=== PATIENT | male | born 1955 | race Two or more races ===

== ENCOUNTER 2017-10-19 12:30 | Emergency (ER) | payer SELFPAY ==
[~2017-10-19] VITALS: Ht 182.9 cm; Wt 74.8 kg
[2017-10-19 13:27] LABS: Basophils # (auto) 0 uL; Basophils % (auto) 0.3 % (0.0-2.0); Eosinophils # (auto) 0 uL; Eosinophils % (auto) 0.2 % (0.0-7.0); Hematocrit 42.6 % (41.0-53.0); Hemoglobin 14.6 g/dL (13.5-17.5); Lymphocytes # (auto) 0.2 uL; Lymphocytes % (auto) 2.9 % (10.0-50.0); Mean Corpuscular Hemoglobin 33.8 pg (28.0-32.0); Mean Corpuscular Hgb Conc. 34.2 g/dL (32.0-36.0); Monocytes # (auto) 0.7 uL; Monocytes % (auto) 11.8 % (0.0-12.0); Neutrophils # (auto) 5.4 uL; Neutrophils % (auto) 84.8 % (37.0-80.0); Nucleated Red Blood Cells % 0.1 %; Platelet Count (auto) 207 10^3/uL (140-450); Red Blood Cells 4.31 10^6/uL (4.5-5.90); Red Cell Distribution Width 16.6 % (11.8-14.3); White Blood Cell 6.3 10^3/uL (4.4-10.8)
[2017-10-19 13:34] LABS: Urine Bacteria NONE SEEN /hpf (None Seen); Urine Blood Negative /uL (Negative); Urine Mucus FEW (None Seen); Urine Specific Gravity 1.035 (1.001-1.035); Urine WBC 2 /hpf (0 - 3)
[2017-10-19 13:45] LABS: Alanine Aminotransferase 24 U/L (16-61); Anion Gap 12 (5-15); Aspartate Aminotransferase 26 U/L (15-37); Blood Urea Nitrogen 18 mg/dL (7-18); Calcium 8.4 mg/dL (8.5-10.1); Carbon Dioxide 22 mmol/L (21-32); Chloride 108 mmol/L (98-107); GFR African American 110 mL/min; GFR Non-African American 91 mL/min; Glucose 104 mg/dL (74-106); Potassium 3.8 mmol/L (3.5-5.1); Sodium 142 mmol/L (136-145)
[2017-10-19 13:50] LABS: Total Protein 7.4 g/dL (6.4-8.2)
[2017-10-19] MEDS ORDERED: LEVOFLOXACIN 250 MG TAB PO ONE (14:00)
[2017-10-19 14:01] LABS: Alkaline Phosphatase 91 U/L (45-117); Bilirubin, Total 0.5 mg/dL (0.2-1.0)
[2017-10-19 15:57] VITALS: BP 154/73
== END 2017-10-19 16:05 | disposition home or self-care (01) ==
LOC: ER 12:42
DX: J40 Bronchitis, not specified as acute or chronic (principal)
CPT/HCPCS: 36415; 71046; 80053; 81001; 84484; 85025; 93005

== ENCOUNTER 2018-01-04 23:14 | Emergency (ER) | payer MEDICAID, OTHER ==
[~2018-01-04] VITALS: Ht 177.8 cm; Wt 81.6 kg
[2018-01-04] MEDS ORDERED: cefTRIAXone W LIDOCAINE 1 GM IM IM ONE (23:45)
[2018-01-05] MEDS ORDERED: cefTRIAXone SOD 1,000 MG VL ONE (00:07)
[2018-01-05 01:02] LABS: Eosinophils # (auto) 0 uL; Eosinophils % (auto) 0.3 % (0.0-7.0); Mean Corpuscular Hgb Conc. 33.9 g/dL (32.0-36.0); Monocytes # (auto) 0.4 uL
[2018-01-05 01:04] LABS: Basophils # (auto) 0 uL; Basophils % (auto) 0.3 % (0.0-2.0); Hemoglobin 13.5 g/dL (13.5-17.5); Lymphocytes % (auto) 13.5 % (10.0-50.0); Mean Corpuscular Hemoglobin 34.3 pg (28.0-32.0); Mean Corpuscular Volume 101.4 fL (80.0-100.0); Monocytes % (auto) 4.8 % (0.0-12.0); Neutrophils # (auto) 6.1 uL; Neutrophils % (auto) 81.1 % (37.0-80.0); Nucleated Red Blood Cells % 0.1 %; Platelet Count (auto) 213 10^3/uL (140-450); Red Blood Cells 3.94 10^6/uL (4.5-5.90); Red Cell Distribution Width 14.9 % (11.8-14.3); White Blood Cell 7.5 10^3/uL (4.4-10.8)
[2018-01-05 01:15] LABS: Albumin 3.4 g/dL (3.4-5.0); Potassium 3.6 mmol/L (3.5-5.1)
[2018-01-05 01:17] LABS: Acetaminophen < 2.0 ug/mL (10-30); Salicylate 2.6 mg/dL (2.8-20.0)
[2018-01-05 01:32] LABS: Bilirubin, Total 0.2 mg/dL (0.2-1.0); Total Protein 6.8 g/dL (6.4-8.2)
[2018-01-05 02:26] LABS: Urine Bacteria NONE SEEN /hpf (None Seen); Urine Blood Negative /uL (Negative); Urine Specific Gravity 1.003 (1.001-1.035); Urine WBC <1 /hpf (0 - 3)
[2018-01-05 02:33] LABS: Amphetamine Screen, Urine NEGATIVE (NEGATIVE); Barbiturate Scree,Urine NEGATIVE (NEGATIVE); Benzodiazephine Screen, Urine NEGATIVE (NEGATIVE); Cannabinoid Screen, Urine POSITIVE (NEGATIVE); Cocaine Screen, Urine NEGATIVE (NEGATIVE); Opiate Scree,Urine NEGATIVE (NEGATIVE); Phencyclidine Screen, Urine NEGATIVE (NEGATIVE)
[2018-01-05 03:13] VITALS: BP 152/81
== END 2018-01-05 04:53 | disposition home or self-care (01) ==
LOC: ER 23:14 → EDBD 23:14 → ER 01-05 04:53
DX: S00.10XA Contusion of unspecified eyelid and periocular area, initial encounter (principal); F10.129 Alcohol abuse with intoxication, unspecified; G44.319 Acute post-traumatic headache, not intractable; J44.9 Chronic obstructive pulmonary disease, unspecified; F12.10 Cannabis abuse, uncomplicated; Z86.711 Personal history of pulmonary embolism; Y04.2XXA Assault by strike against or bumped into by another person, initial encounter; Y93.89 Activity, other specified; Y92.89 Other specified places as the place of occurrence of the external cause; Y99.8 Other external cause status
CPT/HCPCS: 36415; 70450; 70486; 72125; 80053; 80307; 80320; 80329; 81001; 85025; 96372; 99285; J0696

== ENCOUNTER 2018-06-15 17:48 | Inpatient (IN) | payer MEDICAID ==
[~2018-06-15] VITALS: Ht 172.7 cm; Wt 100.2 kg
[~2018-06-15 17:48] MED LIST: ALBUAER3 IN; LEVO500T21 PO; RIV15T PO
[2018-06-15] MEDS ORDERED: methylPREDNISolone SOD SUCC 125 MG/2 ML VL IV ONE (18:15)
[2018-06-15] MEDS ORDERED: ALBUTEROL SULF 2.5 MG/0.5ML(0.5%) NEB SOLN HHN ONE (18:15)
[2018-06-15 18:39] LABS: Basophils # (auto) 0 uL; Eosinophils # (auto) 0 uL; Lymphocytes # (auto) 0.7 uL; Mean Corpuscular Hemoglobin 36.8 pg (28.0-32.0); Monocytes # (auto) 0.4 uL; Nucleated Red Blood Cells % 0.3 %; White Blood Cell 3.4 10^3/uL (4.4-10.8)
[2018-06-15 18:41] LABS: Basophils % (auto) 1.3 % (0.0-2.0); Eosinophils % (auto) 1.2 % (0.0-7.0); Hematocrit 40.4 % (41.0-53.0); Lymphocytes % (auto) 20.4 % (10.0-50.0); Mean Corpuscular Hgb Conc. 34.7 g/dL (32.0-36.0); Mean Corpuscular Volume 106.2 fL (80.0-100.0); Monocytes % (auto) 10.9 % (0.0-12.0); Neutrophils # (auto) 2.3 uL; Neutrophils % (auto) 66.2 % (37.0-80.0); Platelet Count (auto) 132 10^3/uL (140-450); Red Cell Distribution Width 15.9 % (11.8-14.3)
[2018-06-15 18:57] LABS: Alanine Aminotransferase 59 U/L (16-61); Albumin 3.4 g/dL (3.4-5.0); Anion Gap 18 (5-15); Aspartate Aminotransferase 90 U/L (15-37); BUN/Creatinine Ratio 17.4; Blood Urea Nitrogen 16 mg/dL (7-18); Calcium 7.8 mg/dL (8.5-10.1); Carbon Dioxide 16 mmol/L (21-32); Chloride 111 mmol/L (98-107); GFR African American 107 mL/min; GFR Non-African American 89 mL/min; Glucose 110 mg/dL (74-106); Lactic Acid w/Reflex 7.1 mmol/L (0.4-2.0); Magnesium 1.6 mg/dL (1.6-2.6); Potassium 3.3 mmol/L (3.5-5.1); Sodium 145 mmol/L (136-145)
[2018-06-15 19:02] LABS: Alkaline Phosphatase 98 U/L (45-117); Bilirubin, Total 0.9 mg/dL (0.2-1.0); Total Protein 6.5 g/dL (6.4-8.2)
[2018-06-15] MEDS ORDERED: POTASSIUM CHL 20MEQ/100ML 100 ML IV ONE (21:00)
[2018-06-15] MEDS ORDERED: ONDANSETRON HCL 4 MG/2 ML VIAL IV ONE (21:00)
[2018-06-15] MEDS ORDERED: LEVOFLOXACIN 500MG 100 ML IV ONE (21:00)
[2018-06-15] MEDS ORDERED: ONDANSETRON HCL 4 MG/2 ML VIAL IV PRN (21:15)
[2018-06-15] MEDS ORDERED: ACETAMINOPHEN 500 MG TAB PO PRN (21:15)
[2018-06-15] MEDS ORDERED: HYDROcodone-ACET 5/325MG TAB PO PRN (21:15)
[2018-06-15] MEDS ORDERED: IOHEXOL 350 MG/ML 100ML IJ ONE (22:23)
[2018-06-15] MEDS ORDERED: chlordiazePOXIDE HCL 25 MG CAP PO PRN (22:30)
[2018-06-15] MEDS ORDERED: LORazepam 2MG/ML-1ML VIAL IV ONE (22:30)
[2018-06-15] MEDS: METOPROLOL TARTRATE 25 MG TAB PO SCH (22:33)
[2018-06-15] MEDS ORDERED: LORazepam 2MG/ML-1ML VIAL IV PRN (22:45)
[2018-06-15] MEDS ORDERED: ETOMIDATE (2MG/ML) 20ML VIAL IV ONE (23:44)
[2018-06-15] MEDS ORDERED: SUCCINYLCHOLINE CHLORIDE 20 MG/ML 10ML VIAL IV ONE (23:45)
[2018-06-15] MEDS ORDERED: PROPOFOL 100 ML IV ONE (23:45)
[2018-06-15] MEDS: MIDAZOLAM DRIP 50 mg/50mL 50 ML IV SCH (23:56)
[2018-06-16] VITALS (100 sets, daily range): BP systolic 74–169; BP diastolic 46–110
[2018-06-16] MEDS ORDERED: NOREPINEPHRINE 8 MG/250ML KIT 250 ML IV ONE (00:09)
[2018-06-16] MEDS ORDERED: EPINEPHrine HCL 1 MG/10 ML SYRG ONE ×2 (00:26→00:59)
[2018-06-16] MEDS ORDERED: SODIUM BICARBONATE 8.4% INJ 50ML SYRINGE ONE ×3 (00:29→03:11)
[2018-06-16] MEDS: NOREPINEPHRINE 8 MG/250ML KIT 250 ML IV SCH (00:40)
[2018-06-16] MEDS ORDERED: EPINEPHrine HCL 250 ML IV ONE (00:52)
[2018-06-16 00:54] LABS: Mean Corpuscular Hgb Conc. 31.6 g/dL (32.0-36.0)
[2018-06-16 00:55] LABS: Basophils # (auto) 0 uL; Basophils % (auto) 0.3 % (0.0-2.0); Eosinophils # (auto) 0 uL; Eosinophils % (auto) 0.2 % (0.0-7.0); Lymphocytes # (auto) 1.2 uL; Lymphocytes % (auto) 22.7 % (10.0-50.0); Mean Corpuscular Hemoglobin 36.2 pg (28.0-32.0); Mean Corpuscular Volume 114.4 fL (80.0-100.0); Monocytes # (auto) 0.2 uL; Monocytes % (auto) 3.7 % (0.0-12.0); Neutrophils # (auto) 3.9 uL; Neutrophils % (auto) 73.1 % (37.0-80.0); Nucleated Red Blood Cells % 0.4 %; Platelet Count (auto) 104 10^3/uL (140-450); Red Blood Cells 3.59 10^6/uL (4.5-5.90); Red Cell Distribution Width 17.6 % (11.8-14.3); White Blood Cell 5.3 10^3/uL (4.4-10.8)
[2018-06-16] MEDS ORDERED: ATROPINE SULF 1 MG/10ml SYR ONE (00:58)
[2018-06-16] MEDS ORDERED: EPINEPHrine HCL INJECTION 4 MG in SODIUM CHL 0.9% 250 ML IV ONE (01:00)
[2018-06-16 01:02] LABS: INR 1.07 (0.9-1.15); Partial Thromboplastin Time 29.7 sec (23.78-33.04); Prothrombin Time 11.4 sec (9.27-12.13)
[2018-06-16] MEDS ORDERED: methylPREDNISolone SOD SUCC 125 MG/2 ML VL ONE (01:05)
[2018-06-16 01:07] LABS: Albumin 2.8 g/dL (3.4-5.0); BUN/Creatinine Ratio 11.9; Potassium 4.4 mmol/L (3.5-5.1)
[2018-06-16 01:12] LABS: Bilirubin, Total 0.5 mg/dL (0.2-1.0); Total Protein 5.6 g/dL (6.4-8.2)
[2018-06-16] MEDS ORDERED: methylPREDNISolone SOD SUCC 125 MG/2 ML VL IV ONE ×2 (01:15→02:30)
[2018-06-16] MEDS ORDERED: DOXYCYCLINE 100MG/250ML 250 ML IV SCH (01:30)
[2018-06-16] MEDS ORDERED: DEXTROSE (50%) 50ML SYRG IV PRN (01:45)
[2018-06-16] MEDS ORDERED: SODIUM BICARBONATE 50ML VIAL 50 ML in D5W/SOD CHL 0.45% 1,000 ML IV SCH (02:30)
[2018-06-16] MEDS ORDERED: SODIUM BICARBONATE 50ML VIAL 100 ML in D5W 5% 1,000 ML IV SCH (02:30)
[2018-06-16] MEDS ORDERED: ATROPINE SULF 1 MG/10ml SYR IV ONE ×2 (02:45→15:09)
[2018-06-16] MEDS ORDERED: SUCCINYLCHOLINE CHLORIDE 20 MG/ML 10ML VIAL IV ONE ×2 (03:00)
[2018-06-16] MEDS ORDERED: VANCOMYCIN PER PHARMACY 0 MG IV SCH (04:45)
[2018-06-16 04:57] LABS: Urine Bacteria FEW /hpf (None Seen); Urine Blood 2+ /uL (Negative); Urine Mucus FEW (None Seen); Urine Specific Gravity 1.007 (1.001-1.035); Urine WBC 1 /hpf (0 - 3)
[2018-06-16] MEDS ORDERED: VANCOMYCIN 1GM/250ML 250 ML IV ONE (05:00)
[2018-06-16 05:13] LABS: Alcohol, Urine < 3.0 mg/dL (0-5); Amphetamine Screen, Urine NEGATIVE (NEGATIVE); Barbiturate Scree,Urine NEGATIVE (NEGATIVE); Benzodiazephine Screen, Urine NEGATIVE (NEGATIVE); Cannabinoid Screen, Urine POSITIVE (NEGATIVE); Cocaine Screen, Urine NEGATIVE (NEGATIVE); Opiate Scree,Urine NEGATIVE (NEGATIVE); Phencyclidine Screen, Urine NEGATIVE (NEGATIVE)
[2018-06-16] MEDS: ACCU-CHEK COMFORT CURVE STRIP VI SCH ×4 (05:36→23:25)
[2018-06-16] MEDS: InsuLIN REG 1unit/0.01ml Soln (100units/ml) SC SCH ×4 (05:36→23:26)
[2018-06-16] MEDS: ALBUTEROL SULF 2.5 MG/0.5ML(0.5%) NEB SOLN NEB SCH ×4 (07:00→18:24)
[2018-06-16] MEDS: IPRATROPIUM BROM 0.5 MG/2.5ML INH SOL NEB SCH ×4 (07:00→18:24)
[2018-06-16] MEDS ORDERED: PANTOPRAZOLE 40 MG/10 ML VIAL IV SCH (07:30)
[2018-06-16] MEDS ORDERED: LOSARTAN POTASSIUM 50 MG TAB PO SCH (10:00)
[2018-06-16] MEDS: METOPROLOL TARTRATE 25 MG TAB PO SCH (10:00)
[2018-06-16] MEDS: ENOXAPARIN SOD 40 MG/0.4 ML SYRINGE SC SCH (10:29)
[2018-06-16] MEDS: PANTOPRAZOLE 40 MG/10 ML VIAL IV SCH (10:29)
[2018-06-16] MEDS: THIAMINE INJ 100 MG, MULTIPLE VITAMIN 10 ML, FOLIC ACID 1 MG, MAGNESIUM SULF SDV 50% 8 ... IV SCH ×5 (12:15)
[2018-06-16] MEDS ORDERED: cefTRIAXone 1GM/10ml IVPUSH 10 ML IV ONE (13:00)
[2018-06-16 13:36] LABS: Lactic Acid w/Reflex 3.2 mmol/L (0.4-2.0)
[2018-06-16] MEDS: CLINDAMYCIN 600MG IV 50 ML IV SCH ×2 (15:00→21:35)
[2018-06-16] MEDS: SODIUM BICARBONATE 50ML VIAL 50 ML in D5W/SOD CHL 0.45% 1,000 ML IV SCH (15:00)
[2018-06-16] MEDS ORDERED: EPINEPHrine HCL 1 MG/10 ML SYRG IV ONE (15:09)
[2018-06-16] MEDS ORDERED: AMIODARONE HCL (50 MG/ ML) 3 ML VIAL IV ONE (15:09)
[2018-06-16] MEDS ORDERED: SODIUM BICARBONATE 8.4% INJ 50ML SYRINGE IV ONE (15:09)
[2018-06-16] MEDS ORDERED: VANCOMYCIN 1GM/250ML 250 ML IV SCH (17:00)
[2018-06-16] MEDS: MIDAZOLAM DRIP 50 mg/50mL 50 ML IV SCH (23:56)
[2018-06-17] VITALS (99 sets, daily range): BP systolic 82–118; BP diastolic 49–82
[2018-06-17] MEDS: ALBUTEROL SULF 2.5 MG/0.5ML(0.5%) NEB SOLN NEB SCH ×4 (00:13→18:29)
[2018-06-17] MEDS: IPRATROPIUM BROM 0.5 MG/2.5ML INH SOL NEB SCH ×4 (00:13→18:29)
[2018-06-17] MEDS: SODIUM BICARBONATE 50ML VIAL 50 ML in D5W/SOD CHL 0.45% 1,000 ML IV SCH (03:00)
[2018-06-17 04:34] LABS: Hemoglobin 13.2 g/dL (13.5-17.5)
[2018-06-17 04:38] LABS: Hematocrit 39.3 % (41.0-53.0); Mean Corpuscular Hemoglobin 36.4 pg (28.0-32.0); Mean Corpuscular Hgb Conc. 33.6 g/dL (32.0-36.0); Mean Corpuscular Volume 108.5 fL (80.0-100.0); Platelet Count (auto) 84 10^3/uL (140-450); Red Blood Cells 3.63 10^6/uL (4.5-5.90); Red Cell Distribution Width 16.3 % (11.8-14.3); White Blood Cell 9.4 10^3/uL (4.4-10.8)
[2018-06-17 04:46] LABS: Basophils % (manual) 0 (0.0-2.0); Blast Cells 0; Eosinophils % (manual) 0 (0-7); Monocytes % (manual) 0 (0-12); Myelocytes % 0; Promyelocytes % 0; Reactive Lymphocytes 0
[2018-06-17 04:48] LABS: Albumin 2.6 g/dL (3.4-5.0); BUN/Creatinine Ratio 17.7; Calcium 8.3 mg/dL (8.5-10.1); Potassium 4.2 mmol/L (3.5-5.1)
[2018-06-17 04:51] LABS: Bilirubin, Total 0.5 mg/dL (0.2-1.0); Total Protein 5.3 g/dL (6.4-8.2)
[2018-06-17] MEDS: ACCU-CHEK COMFORT CURVE STRIP VI SCH ×4 (05:29→23:40)
[2018-06-17] MEDS: CLINDAMYCIN 600MG IV 50 ML IV SCH ×3 (05:29→21:33)
[2018-06-17] MEDS: InsuLIN REG 1unit/0.01ml Soln (100units/ml) SC SCH ×4 (05:29→23:40)
[2018-06-17 06:02] LABS: Band Neutrophils % (manual) 4; Lymphocytes % (manual) 2 (10.0-50.0); Metamyelocytes % 1
[2018-06-17] MEDS: PANTOPRAZOLE 40 MG/10 ML VIAL IV SCH (08:28)
[2018-06-17] MEDS: ENOXAPARIN SOD 40 MG/0.4 ML SYRINGE SC SCH (10:32)
[2018-06-17] MEDS: cefTRIAXone 1GM/10ml IVPUSH 10 ML IV SCH (10:33)
[2018-06-17] MEDS: D5W/SOD CHL 0.45% 1,000 ML IV SCH ×2 (11:45→19:45)
[2018-06-17] MEDS: THIAMINE INJ 100 MG, MULTIPLE VITAMIN 10 ML, FOLIC ACID 1 MG, MAGNESIUM SULF SDV 50% 8 ... IV SCH ×5 (12:48)
[2018-06-17] MEDS: NOREPINEPHRINE 8 MG/250ML KIT 250 ML IV SCH (15:24)
[2018-06-17] MEDS ORDERED: LIDOCAINE 1% (LOCAL ANESTH.) PF 5ml SDV ID ONE (17:00)
[2018-06-17] MEDS: SODIUM CHLOR 0.9% PF (SALINE LOCK) 10ML VIAL/SYR IV SCH (21:33)
[2018-06-17] MEDS: MIDAZOLAM DRIP 50 mg/50mL 50 ML IV SCH (23:56)
[2018-06-18] VITALS (108 sets, daily range): BP systolic 72–111; BP diastolic 38–70
[2018-06-18] MEDS: IPRATROPIUM BROM 0.5 MG/2.5ML INH SOL NEB SCH ×4 (00:24→19:01)
[2018-06-18] MEDS: ALBUTEROL SULF 2.5 MG/0.5ML(0.5%) NEB SOLN NEB SCH ×4 (00:24→19:01)
[2018-06-18] MEDS: NOREPINEPHRINE 8 MG/250ML KIT 250 ML IV SCH (02:30)
[2018-06-18 03:42] LABS: Hemoglobin 13.2 g/dL (13.5-17.5); Platelet Count (auto) 63 10^3/uL (140-450)
[2018-06-18 03:45] LABS: Hematocrit 40.3 % (41.0-53.0); Mean Corpuscular Hgb Conc. 32.8 g/dL (32.0-36.0); Mean Corpuscular Volume 109.9 fL (80.0-100.0); Red Blood Cells 3.66 10^6/uL (4.5-5.90); Red Cell Distribution Width 16.9 % (11.8-14.3); White Blood Cell 12.9 10^3/uL (4.4-10.8)
[2018-06-18 04:01] LABS: Basophils % (manual) 0 (0.0-2.0); Blast Cells 0; Monocytes % (manual) 0 (0-12); Myelocytes % 0; Promyelocytes % 0; Reactive Lymphocytes 0
[2018-06-18 04:03] LABS: Calcium 8.2 mg/dL (8.5-10.1); Potassium 3.9 mmol/L (3.5-5.1)
[2018-06-18 04:06] LABS: BUN/Creatinine Ratio 10.8
[2018-06-18] MEDS: InsuLIN REG 1unit/0.01ml Soln (100units/ml) SC SCH ×3 (05:17→18:00)
[2018-06-18] MEDS: ACCU-CHEK COMFORT CURVE STRIP VI SCH ×3 (05:17→18:00)
[2018-06-18] MEDS: CLINDAMYCIN 600MG IV 50 ML IV SCH ×3 (05:17→22:31)
[2018-06-18] MEDS: D5W/SOD CHL 0.45% 1,000 ML IV SCH ×4 (05:20→22:31)
[2018-06-18 07:42] LABS: Band Neutrophils % (manual) 15; Eosinophils % (manual) 1 (0-7); Lymphocytes % (manual) 7 (10.0-50.0); Metamyelocytes % 1
[2018-06-18] MEDS: SODIUM CHLOR 0.9% PF (SALINE LOCK) 10ML VIAL/SYR IV SCH ×2 (10:00→22:31)
[2018-06-18] MEDS: FREE WATER GT SCH ×2 (12:38→18:00)
[2018-06-18] MEDS: PANTOPRAZOLE 40 MG/10 ML VIAL IV SCH (12:39)
[2018-06-18] MEDS: cefTRIAXone 1GM/10ml IVPUSH 10 ML IV SCH (12:39)
[2018-06-18] MEDS: THIAMINE INJ 100 MG, MULTIPLE VITAMIN 10 ML, FOLIC ACID 1 MG, MAGNESIUM SULF SDV 50% 8 ... IV SCH ×5 (12:45)
[2018-06-18] MEDS ORDERED: PHENYLEPHRINE INJ 20 MG in SODIUM CHL 0.9% 250 ML IV SCH (16:33)
[2018-06-18 17:10] LABS: Urine Amorphous Crystal FEW /hpf (None Seen); Urine Bacteria FEW /hpf (None Seen); Urine Blood 1+ /uL (Negative); Urine Specific Gravity 1.017 (1.001-1.035); Urine WBC 10 /hpf (0 - 3)
[2018-06-18 17:21] LABS: Protein, Urine 203.9 mg/dL (0.0-11.9)
[2018-06-18] MEDS ORDERED: PHENYLEPHRINE IV 250 ML IV ONE (23:56)
[2018-06-18] MEDS: MIDAZOLAM DRIP 50 mg/50mL 50 ML IV SCH (23:56)
[2018-06-19] VITALS (105 sets, daily range): BP systolic 71–136; BP diastolic 38–82
[2018-06-19] MEDS: IPRATROPIUM BROM 0.5 MG/2.5ML INH SOL NEB SCH ×3 (00:14→18:12)
[2018-06-19] MEDS: ALBUTEROL SULF 2.5 MG/0.5ML(0.5%) NEB SOLN NEB SCH ×3 (00:14→18:12)
[2018-06-19] MEDS: PHENYLEPHRINE INJ 20 MG in D5W 5% 250 ML IV SCH ×4 (00:25→18:00)
[2018-06-19] MEDS: NOREPINEPHRINE 8 MG/250ML KIT 250 ML IV SCH ×4 (00:25→18:24)
[2018-06-19] MEDS: FREE WATER GT SCH ×4 (02:53→18:19)
[2018-06-19] MEDS: ACCU-CHEK COMFORT CURVE STRIP VI SCH ×4 (02:54→18:19)
[2018-06-19] MEDS: InsuLIN REG 1unit/0.01ml Soln (100units/ml) SC SCH ×4 (02:54→18:20)
[2018-06-19 04:19] LABS: Basophils # (auto) 0 uL; Eosinophils # (auto) 0.2 uL; Mean Corpuscular Hemoglobin 36.4 pg (28.0-32.0); Monocytes # (auto) 0.6 uL
[2018-06-19 04:22] LABS: Basophils % (auto) 0.3 % (0.0-2.0); Eosinophils % (auto) 1.6 % (0.0-7.0); Hematocrit 39.8 % (41.0-53.0); Hemoglobin 13.1 g/dL (13.5-17.5); Lymphocytes # (auto) 0.6 uL; Lymphocytes % (auto) 6.2 % (10.0-50.0); Mean Corpuscular Hgb Conc. 32.8 g/dL (32.0-36.0); Mean Corpuscular Volume 110.8 fL (80.0-100.0); Neutrophils # (auto) 8.7 uL; Neutrophils % (auto) 85.9 % (37.0-80.0); Nucleated Red Blood Cells % 0.1 %; Platelet Count (auto) 49 10^3/uL (140-450); Red Blood Cells 3.59 10^6/uL (4.5-5.90); Red Cell Distribution Width 16.5 % (11.8-14.3); White Blood Cell 10.2 10^3/uL (4.4-10.8)
[2018-06-19 04:40] LABS: BUN/Creatinine Ratio 9.5; Calcium 7.6 mg/dL (8.5-10.1); Phosphorus 4.9 mg/dL (2.5-4.90); Potassium 4.4 mmol/L (3.5-5.1)
[2018-06-19] MEDS: CLINDAMYCIN 600MG IV 50 ML IV SCH (06:10)
[2018-06-19] MEDS: D5W/SOD CHL 0.45% 1,000 ML IV SCH ×2 (06:10→14:11)
[2018-06-19] MEDS: PANTOPRAZOLE 40 MG/10 ML VIAL IV SCH ×2 (08:00→09:00)
[2018-06-19] MEDS: SODIUM CHLOR 0.9% PF (SALINE LOCK) 10ML VIAL/SYR IV SCH ×2 (09:00→21:51)
[2018-06-19] MEDS: MEROPENEM 1gm/20ml IVPUSH 20 ML IV SCH ×2 (10:37→21:51)
[2018-06-19 11:54] LABS: Folate (Folic Acid) 18.07 ng/mL (5.38-24)
[2018-06-19] MEDS: VASOPRESSIN 50 UNITS in D5W 5% 247.5 ML IV SCH (14:11)
[2018-06-19] MEDS: THIAMINE INJ 100 MG, MULTIPLE VITAMIN 10 ML, FOLIC ACID 1 MG, MAGNESIUM SULF SDV 50% 8 ... IV SCH ×5 (15:09)
[2018-06-19] MEDS: MIDAZOLAM DRIP 50 mg/50mL 50 ML IV SCH (23:56)
[2018-06-20] VITALS (103 sets, daily range): BP systolic 72–154; BP diastolic 33–90
[2018-06-20] MEDS: IPRATROPIUM BROM 0.5 MG/2.5ML INH SOL NEB SCH ×4 (00:05→18:10)
[2018-06-20] MEDS: ALBUTEROL SULF 2.5 MG/0.5ML(0.5%) NEB SOLN NEB SCH ×4 (00:05→18:10)
[2018-06-20] MEDS: ACCU-CHEK COMFORT CURVE STRIP VI SCH ×4 (00:19→18:52)
[2018-06-20] MEDS: InsuLIN REG 1unit/0.01ml Soln (100units/ml) SC SCH ×4 (00:19→18:52)
[2018-06-20] MEDS: FREE WATER GT SCH ×4 (00:19→18:52)
[2018-06-20] MEDS: NOREPINEPHRINE 8 MG/250ML KIT 250 ML IV SCH ×5 (01:00→23:46)
[2018-06-20] MEDS: PHENYLEPHRINE INJ 20 MG in D5W 5% 250 ML IV SCH ×2 (02:20→10:40)
[2018-06-20] MEDS: D5W/SOD CHL 0.45% 1,000 ML IV SCH ×3 (02:25→19:39)
[2018-06-20 03:55] LABS: Basophils # (auto) 0 uL; Eosinophils # (auto) 0.2 uL; Lymphocytes # (auto) 0.5 uL; Lymphocytes % (auto) 6.4 % (10.0-50.0); Monocytes # (auto) 0.8 uL; Nucleated Red Blood Cells % 0.4 %; White Blood Cell 7.5 10^3/uL (4.4-10.8)
[2018-06-20 04:00] LABS: Basophils % (auto) 0.3 % (0.0-2.0); Eosinophils % (auto) 2.1 % (0.0-7.0); Hematocrit 35.8 % (41.0-53.0); Hemoglobin 11.9 g/dL (13.5-17.5); Mean Corpuscular Hemoglobin 36.2 pg (28.0-32.0); Mean Corpuscular Hgb Conc. 33.3 g/dL (32.0-36.0); Mean Corpuscular Volume 108.6 fL (80.0-100.0); Neutrophils % (auto) 80.2 % (37.0-80.0); Platelet Count (auto) 40 10^3/uL (140-450); Red Blood Cells 3.29 10^6/uL (4.5-5.90); Red Cell Distribution Width 15.9 % (11.8-14.3)
[2018-06-20 04:15] LABS: BUN/Creatinine Ratio 11.3; Calcium 7.8 mg/dL (8.5-10.1); Potassium 4.3 mmol/L (3.5-5.1)
[2018-06-20] MEDS: PANTOPRAZOLE 40 MG/10 ML VIAL IV SCH (09:24)
[2018-06-20] MEDS: MEROPENEM 1gm/20ml IVPUSH 20 ML IV SCH ×2 (09:26→22:24)
[2018-06-20] MEDS: SODIUM CHLOR 0.9% PF (SALINE LOCK) 10ML VIAL/SYR IV SCH ×2 (09:27→22:24)
[2018-06-20] MEDS: VASOPRESSIN 50 UNITS in D5W 5% 247.5 ML IV SCH (15:30)
[2018-06-20] MEDS: MIDAZOLAM DRIP 50 mg/50mL 50 ML IV SCH (23:56)
[2018-06-21] VITALS (108 sets, daily range): BP systolic 64–146; BP diastolic 26–89
[2018-06-21] MEDS: ALBUTEROL SULF 2.5 MG/0.5ML(0.5%) NEB SOLN NEB SCH ×4 (00:19→19:06)
[2018-06-21] MEDS: IPRATROPIUM BROM 0.5 MG/2.5ML INH SOL NEB SCH ×4 (00:19→19:06)
[2018-06-21 04:05] LABS: Hemoglobin 11.4 g/dL (13.5-17.5)
[2018-06-21 04:07] LABS: Hematocrit 33.9 % (41.0-53.0); Mean Corpuscular Hemoglobin 36.2 pg (28.0-32.0); Mean Corpuscular Hgb Conc. 33.5 g/dL (32.0-36.0); Mean Corpuscular Volume 107.9 fL (80.0-100.0); Platelet Count (auto) 40 10^3/uL (140-450); Red Blood Cells 3.14 10^6/uL (4.5-5.90); Red Cell Distribution Width 15.5 % (11.8-14.3)
[2018-06-21 04:11] LABS: Basophils % (manual) 0 (0.0-2.0); Blast Cells 0; Metamyelocytes % 0; Myelocytes % 0; Promyelocytes % 0; Reactive Lymphocytes 0
[2018-06-21 04:29] LABS: BUN/Creatinine Ratio 12.8; Calcium 7.9 mg/dL (8.5-10.1); Potassium 4.1 mmol/L (3.5-5.1)
[2018-06-21 04:34] LABS: Band Neutrophils % (manual) 5; Eosinophils % (manual) 2 (0-7); Lymphocytes % (manual) 4 (10.0-50.0); Monocytes % (manual) 12 (0-12)
[2018-06-21] MEDS: D5W/SOD CHL 0.45% 1,000 ML IV SCH ×3 (06:12→17:16)
[2018-06-21] MEDS: FREE WATER GT SCH ×4 (06:12→17:40)
[2018-06-21] MEDS: InsuLIN REG 1unit/0.01ml Soln (100units/ml) SC SCH ×4 (06:28→17:40)
[2018-06-21] MEDS: ACCU-CHEK COMFORT CURVE STRIP VI SCH ×4 (06:28→17:38)
[2018-06-21] MEDS: PANTOPRAZOLE 40 MG/10 ML VIAL IV SCH (08:41)
[2018-06-21] MEDS: MEROPENEM 1gm/20ml IVPUSH 20 ML IV SCH ×2 (09:25→22:35)
[2018-06-21] MEDS: SODIUM CHLOR 0.9% PF (SALINE LOCK) 10ML VIAL/SYR IV SCH ×2 (09:26→22:00)
[2018-06-21] MEDS: VASOPRESSIN 50 UNITS in D5W 5% 247.5 ML IV SCH (11:10)
[2018-06-21] MEDS: NOREPINEPHRINE 8 MG/250ML KIT 250 ML IV SCH (11:11)
[2018-06-22] VITALS (104 sets, daily range): BP systolic 70–142; BP diastolic 36–80
[2018-06-22] MEDS: ALBUTEROL SULF 2.5 MG/0.5ML(0.5%) NEB SOLN NEB SCH ×4 (00:11→19:38)
[2018-06-22] MEDS: IPRATROPIUM BROM 0.5 MG/2.5ML INH SOL NEB SCH ×4 (00:11→19:38)
[2018-06-22] MEDS: ACCU-CHEK COMFORT CURVE STRIP VI SCH ×5 (06:00→23:21)
[2018-06-22] MEDS: InsuLIN REG 1unit/0.01ml Soln (100units/ml) SC SCH ×5 (06:00→23:21)
[2018-06-22] MEDS: FREE WATER GT SCH ×5 (06:00→23:21)
[2018-06-22] MEDS: NOREPINEPHRINE 8 MG/250ML KIT 250 ML IV SCH (07:05)
[2018-06-22] MEDS: D5W/SOD CHL 0.45% 1,000 ML IV SCH (07:05)
[2018-06-22] MEDS: MEROPENEM 1gm/20ml IVPUSH 20 ML IV SCH ×2 (11:24→21:31)
[2018-06-22] MEDS: PANTOPRAZOLE 40 MG/10 ML VIAL IV SCH (11:24)
[2018-06-22] MEDS: SODIUM CHLOR 0.9% PF (SALINE LOCK) 10ML VIAL/SYR IV SCH ×2 (11:24→21:31)
[2018-06-22] MEDS: VASOPRESSIN 50 UNITS in D5W 5% 247.5 ML IV SCH (12:15)
[2018-06-23] VITALS (68 sets, daily range): BP systolic 76–127; BP diastolic 45–80
[2018-06-23] MEDS: IPRATROPIUM BROM 0.5 MG/2.5ML INH SOL NEB SCH ×3 (00:41→13:56)
[2018-06-23] MEDS: ALBUTEROL SULF 2.5 MG/0.5ML(0.5%) NEB SOLN NEB SCH ×3 (00:41→13:56)
[2018-06-23] MEDS: D5W/SOD CHL 0.45% 1,000 ML IV SCH (04:30)
[2018-06-23] MEDS: FREE WATER GT SCH ×2 (05:29→11:38)
[2018-06-23] MEDS: InsuLIN REG 1unit/0.01ml Soln (100units/ml) SC SCH ×2 (05:29→11:38)
[2018-06-23] MEDS: ACCU-CHEK COMFORT CURVE STRIP VI SCH ×2 (05:29→11:38)
[2018-06-23] MEDS: PANTOPRAZOLE 40 MG/10 ML VIAL IV SCH (08:22)
[2018-06-23 09:00] LABS: Albumin 1.3 g/dL (3.4-5.0); BUN/Creatinine Ratio 22.7; Bilirubin, Total 0.4 mg/dL (0.2-1.0); Calcium 7.8 mg/dL (8.5-10.1); Total Protein 4.6 g/dL (6.4-8.2)
[2018-06-23] MEDS: MEROPENEM 1gm/20ml IVPUSH 20 ML IV SCH (09:30)
[2018-06-23] MEDS: SODIUM CHLOR 0.9% PF (SALINE LOCK) 10ML VIAL/SYR IV SCH (10:00)
[2018-06-23 10:13] LABS: Hematocrit 36.1 % (41.0-53.0); Red Blood Cells 3.39 10^6/uL (4.5-5.90); Red Cell Distribution Width 15.8 % (11.8-14.3)
[2018-06-23 10:15] LABS: Hemoglobin 11.9 g/dL (13.5-17.5); Mean Corpuscular Hemoglobin 35.2 pg (28.0-32.0); Mean Corpuscular Hgb Conc. 33.1 g/dL (32.0-36.0); Mean Corpuscular Volume 106.2 fL (80.0-100.0); Platelet Count (auto) 63 10^3/uL (140-450); White Blood Cell 12.1 10^3/uL (4.4-10.8)
[2018-06-23 10:25] LABS: Band Neutrophils % (manual) 0; Basophils % (manual) 0 (0.0-2.0); Blast Cells 0; Metamyelocytes % 0; Myelocytes % 0; Promyelocytes % 0; Reactive Lymphocytes 0
[2018-06-23 10:32] LABS: INR 0.96 (0.9-1.15); Prothrombin Time 10.3 sec (9.27-12.13)
[2018-06-23 11:04] LABS: Eosinophils % (manual) 3 (0-7); Lymphocytes % (manual) 8 (10.0-50.0); Monocytes % (manual) 8 (0-12)
[2018-06-23] MEDS: VASOPRESSIN 50 UNITS in D5W 5% 247.5 ML IV SCH (11:38)
== END 2018-06-23 23:12 | disposition expired | DRG 720 ==
LOC: EDBD 17:48 → ER 17:50 → OVERFLOW 17:51 → ICU WEST 06-16 02:04
PROVIDERS: ADMIT Nurse Practitioner Family; ATTEND Internal Medicine
PROC: 5A12012 Performance of Cardiac Output, Single, Manual (ICD-10-PCS; 2018-06-15)
PROC: 5A1955Z Respiratory Ventilation, Greater than 96 Consecutive Hours (ICD-10-PCS; principal; 2018-06-16)
PROC: 0BH17EZ Insertion of Endotracheal Airway into Trachea, Via Natural or Artificial Opening (ICD-10-PCS; 2018-06-16)
PROC: 0W9930Z Drainage of Right Pleural Cavity with Drainage Device, Percutaneous Approach (ICD-10-PCS; 2018-06-16)
PROC: 02H633Z Insertion of Infusion Device into Right Atrium, Percutaneous Approach (ICD-10-PCS; 2018-06-17)
DX: A41.9 Sepsis, unspecified organism (principal); I61.1 Nontraumatic intracerebral hemorrhage in hemisphere, cortical; I46.9 Cardiac arrest, cause unspecified; J69.0 Pneumonitis due to inhalation of food and vomit; J96.21 Acute and chronic respiratory failure with hypoxia; G93.1 Anoxic brain damage, not elsewhere classified; E83.51 Hypocalcemia; D69.6 Thrombocytopenia, unspecified; N17.0 Acute kidney failure with tubular necrosis; G93.41 Metabolic encephalopathy; E44.0 Moderate protein-calorie malnutrition; E87.6 Hypokalemia; E87.0 Hyperosmolality and hypernatremia; D50.9 Iron deficiency anemia, unspecified; E78.5 Hyperlipidemia, unspecified; F12.90 Cannabis use, unspecified, uncomplicated; F17.210 Nicotine dependence, cigarettes, uncomplicated; I10 Essential (primary) hypertension; I25.10 Atherosclerotic heart disease of native coronary artery without angina pectoris; J44.9 Chronic obstructive pulmonary disease, unspecified; J93.83 Other pneumothorax; K76.0 Fatty (change of) liver, not elsewhere classified; R65.21 Severe sepsis with septic shock; R40.20 Unspecified coma; F10.10 Alcohol abuse, uncomplicated; Z88.0 Allergy status to penicillin; Z79.01 Long term (current) use of anticoagulants; Z83.3 Family history of diabetes mellitus; Z86.711 Personal history of pulmonary embolism; Z59.0 Homelessness
CPT/HCPCS: 31500; 36415; 36569; 36600; 70450; 71045; 71275; 74176; 76775; 80048; 80053; 80307; 80320; 81001; 82306; 82570; 82607; 82746; 82805; 82962; 83605; 83735; 83880; 84100; 84156; 84300; 84484; 85007; 85025; 85027; 85379; 85610; 85730; 87040; 87070; 87081; 87086; 87205; 93005; 93306; 94002; 94003; 94640; 94644; 95819; 96365; 96375; 96379; 99291; A4565; A6257; C9113; G0378; J0171; J0330; J0696; J1815; J1956; J2405; J2704; J3480; J3490; J7042; J7060